=== PATIENT | male | born 1945 | race Hispanic/Latino ===

== ENCOUNTER 2017-02-25 07:08 | Emergency (ER) | payer MEDICARE ==
[2017-02-25 07:24] VITALS: BMI 29.6
[2017-02-25] MEDS ORDERED: Sodium Chloride 0.9% 500 ML IV ONE ×2 (07:46→07:59)
[2017-02-25 08:02] LABS: BASO # 0.1 K/uL (0.0-0.2); BASO % 1.8 % (0.0-2.0); EOS # 0.2 K/uL (0.0-0.7); EOS % 2.9 % (0.0-4.0); HEMATOCRIT 38.3 % (35.0-51.0); LYMPH # 0.9 K/uL (1.0-4.3); LYMPH % 14.3 % (20.0-40.0); MEAN CELL VOLUME 83.6 fL (80.0-94.0); MEAN CORPUSCULAR HEMOGLOBIN 28.5 pg (27.0-31.0); MEAN CORPUSCULAR HGB CONC 34.1 g/dL (33.0-37.0); MEAN PLATELET VOLUME 8.4 fL (7.2-11.7); MONO # 0.4 K/uL (0.0-0.8); MONO % 6.5 % (0.0-10.0); NRBC % 0.1 % (0.0-2.0); RED CELL DISTRIBUTION WIDTH 13.5 % (11.5-14.5); WHITE BLOOD COUNT 6.5 K/uL (4.8-10.8)
[2017-02-25 08:10] LABS: CHLORIDE 101 mmol/L (98-107)
[2017-02-25 08:11] LABS: POTASSIUM 4.2 mmol/L (3.6-5.2); SODIUM 140 mmol/L (132-148)
[2017-02-25 08:13] LABS: ALB/GLOB RATIO 1.4 (1.0-2.1); ALKALINE PHOSPHATASE 90 U/L (38-126); ALT/SGPT 23 U/L (21-72); AST/SGOT 27 U/L (17-59); BILIRUBIN,TOTAL 1.1 mg/dL (0.2-1.3); BLOOD UREA NITROGEN 16 mg/dL (9-20); CARBON DIOXIDE 28 mmol/L (22-30); GFR AFRICAN-AMERICAN > 60; GLUCOSE,RANDOM 94 mg/dL (75-110); TOTAL PROTEIN 7.4 g/dL (6.3-8.3)
[2017-02-25 08:14] LABS: CALCIUM 9.7 mg/dl (8.6-10.4)
--- NOTE | 2017-02-25 08:19 | C.PDOC ---
History Of Present Illness 71-year-old male, PMHx includes Prostate CA (currently receiving radiating) presents to the emergency department with complaints of dizziness. Patient states he was at [employer], and suddenly, he felt dizzy and weak. States the room was spinning around him and everything became blurry. Patient reports that someone helped him; He did not have complete LOC or fall to ground. Patient has had several episodes in past. He was previously given Meclizine, which he states was helpful. Patient denies chest pain, shortness of breath palpitations , facial droop, speech changes, visual changes, numbness/weakness, or any other associated symptoms. No other complaints at this time. Time Seen by Provider: 02/25/17 07:20 Chief Complaint (Nursing): Dizziness/Lightheaded History Per: Patient History/Exam Limitations: no limitations Onset/Duration Of Symptoms: Other (prior to arrival.) Past Medical History Reviewed: Historical Data, Nursing Documentation, Vital Signs Vital Signs: Last Vital Signs Temp 97.9 F 02/25/17 10:37 Pulse 92 H 02/25/17 10:37 Resp 20 02/25/17 10:37 BP 111/72 02/25/17 10:37 Pulse Ox 99 02/25/17 10:37 - Medical History PMH: Arthritis Denies: Chronic Kidney Disease Family History: States: No Known Family Hx - Social History Hx Alcohol Use: No Hx Substance Use: No - Immunization History Hx Tetanus Toxoid Vaccination: No Hx Influenza Vaccination: No Hx Pneumococcal Vaccination: No Review Of Systems Except As Marked, All Systems Reviewed And Found Negative. Constitutional: Negative for: Fever Cardiovascular: Negative for: Chest Pain Gastrointestinal: Negative for: Nausea, Vomiting Neurological: Positive for: Dizziness. Negative for: Weakness, Numbness, Headache Physical Exam - Physical Exam Appears: Well, Non-toxic, No Acute Distress, Other (Comfortable.) Skin: Warm, Dry, No Rash Head: Atraumatic, Normacephalic Eye(s): bilateral: Normal Inspection, PERRL, EOMI, Other (No nystagmus.) Oral Mucosa: Moist Lips: Normal Appearing Neck: Normal ROM Cardiovascular: Rhythm Regular, No Murmur Respiratory: Normal Breath Sounds, No Accessory Muscle Use Extremity: Normal ROM Neurological/Psych: Oriented x3 ED Course And Treatment - Laboratory Results Result Diagrams: 02/25/17 07:58 02/25/17 07:58 ECG: Interpreted By Me, Viewed By Me ECG Rhythm: Sinus Rhythm ECG Interpretation: No Acute Changes (No acute ST/T wave changes,) Interpretation Of ECG: Normal [place]. Rate From EC O2 Sat by Pulse Oximetry: 95 (on RA) - CT Scan/US CT HEAD Other Rad Studies (CT/US): Read By Radiologist, Radiology Report Reviewed CT/US Interpretation: Accession No. : [id number]. Patient Name / ID : SANCHEZ LUIS / [id number]. Exam Date : 02/25/2017 08:14:32 ( Approved ). Study Comment : Sex / Age : M / 71Y. Creator : kasie flannery. Dictator : Judson Dubois MD. Permastone Applicator : Pr Specialist : Judson Dubois MD. Approver2 : Report Date : 02/25/2017 08:26:06. My Comment : . PROCEDURE: CT HEAD WITHOUT CONTRAST. HISTORY: dizziness, near syncope. COMPARISON: None available. TECHNIQUE: Axial computed tomography images were obtained through the head/brain without intravenous contrast. Radiation dose: Total exam DLP = 879.09 mGy-cm. This CT exam was performed using one or more of the following dose reduction techniques: Automated exposure control, adjustment of the mA and/or kV according to patient size, and/or use of iterative reconstruction technique. FINDINGS: HEMORRHAGE: No intracranial hemorrhage. BRAIN: No mass effect or edema. Patchy periventricular and deep white matter lucencies consistent with age-related microvascular ischemic change. VENTRICLES : Unremarkable. No hydrocephalus. CALVARIUM: Unremarkable. PARANASAL SINUSES : Unremarkable as visualized. No significant inflammatory changes. MASTOID AIR CELLS: Unremarkable as visualized. No inflammatory changes. OTHER FINDINGS : None. IMPRESSION: No intracranial mass, hemorrhage or evidence of acute infarct. Mild age-related microvascular ischemic change. Otherwise unremarkable examination. Progress Note: 07:15-Bloodwork, EKG and Urinalysis ordered and reviewed. Patient treated with IVFs. Disposition Counseled Patient/Family Regarding: Studies Performed, Diagnosis, Need For Followup - Disposition Referrals: Bryant Nogueira MD [Staff Provider] - Malia Nogueira MD [Staff Provider] - Disposition: HOME/ ROUTINE Disposition Time: 10:30 Condition: STABLE Additional Instructions: FOLLOW UP WITH DR NOGUEIRA TOMORROW SCHEDULED RETURN TO ER IF YOU HAVE CONCERNING SYMPTOMS Prescriptions: Meclizine [Meclizine*] 25 mg PO Q6 #20 tab Instructions: Benign Paroxysmal Positional Vertigo (ED) Print Language: INDONESIAN - Clinical Impression Clinical Impression: Peripheral vertigo, Near syncope - Scribe Statement The provider has reviewed the documentation as recorded by the Scribe (Roseline Belle) All medical record entries made by the Scribe were at my direction and personally dictated by me. I have reviewed the chart and agree that the record accurately reflects my personal performance of the history, physical exam, medical decision making, and the department course for this patient. I have also personally directed, reviewed, and agree with the discharge instructions and disposition.
--- NOTE | 2017-02-25 08:45 | CT ---
PROCEDURE: CT HEAD WITHOUT CONTRAST. HISTORY: dizziness, near syncope COMPARISON: None available. TECHNIQUE: Axial computed tomography images were obtained through the head/brain without intravenous contrast. Radiation dose: Total exam DLP = 879.09 mGy-cm. This CT exam was performed using one or more of the following dose reduction techniques: Automated exposure control, adjustment of the mA and/or kV according to patient size, and/or use of iterative reconstruction technique. FINDINGS: HEMORRHAGE: No intracranial hemorrhage. BRAIN: No mass effect or edema. Patchy periventricular and deep white matter lucencies consistent with age-related microvascular ischemic change. VENTRICLES: Unremarkable. No hydrocephalus. CALVARIUM: Unremarkable. PARANASAL SINUSES: Unremarkable as visualized. No significant inflammatory changes. MASTOID AIR CELLS: Unremarkable as visualized. No inflammatory changes. OTHER FINDINGS: None. IMPRESSION: No intracranial mass, hemorrhage or evidence of acute infarct. Mild age-related microvascular ischemic change. Otherwise unremarkable examination.
[2017-02-25 08:47] LABS: RBC URINE 1 /hpf (0-3); URINE BILIRUBIN NEGATIVE (NEGATIVE); URINE BLOOD NEGATIVE (NEGATIVE); URINE COLOR Yellow (YELLOW); URINE GLUCOSE (UA) NORMAL (Normal); URINE KETONE NEGATIVE (NEGATIVE); URINE LEUKOCYTE ESTERASE NEG Leu/uL (Negative); URINE PROTEIN NEGATIVE (NEGATIVE); URINE UROBILINOGEN NORMAL mg/dL (0.2-1.0); WBC URINE 1 /hpf (0-5)
[2017-02-25 10:38] VITALS: BP 111/72; PULSE 92; RESP 20; TEMP 97.9
[2017-02-25 10:42] VITALS: O2SAT 95
--- NOTE | 2017-02-26 12:03 | CARD ---
APPROVED REPORT EKG Measurement Heart [id number] DE 158P-2 [id number] <Conclusion> Normal sinus rhythm Low voltage QRS Borderline ECG
== END 2017-02-25 10:54 | disposition home or self-care (01) ==
LOC: C.ER 07:08
DX: R55 Syncope and collapse (principal); H81.399 Other peripheral vertigo, unspecified ear
CPT/HCPCS: 70450; 80053; 81001; 82550; 82553; 82948; 84484; 85025; 87086; 93005; 99285; J7040